=== PATIENT | male | born 1955 | race Caucasian/White ===

== ENCOUNTER 2019-12-29 06:42 | Inpatient (IN) | payer OTHER ==
[~2019-12-29] VITALS: Ht 185.4 cm; Wt 119.2 kg
[2019-12-29] MEDS ORDERED: ALBUTEROL SULFATE 0.083% 2.5 MG/3 ML INH IH ONE (07:05)
[2019-12-29] MEDS ORDERED: FUROSEMIDE 10 MG/ML 4ML VIAL ONE (07:12)
[2019-12-29 07:14] LABS: ABG BASE EXCESS 4.9 mmol/L (-2.0-3.0); ABG HCO3 34.9 mmol/L (21.0-28.0); ABG OXYGEN SATURATION 99.3 % (95.0-99.0); ABG PCO2 79 mmHg (35-48)
[2019-12-29 07:16] LABS: BASOPHILS % (AUTO) 0.7 % (0.0-5.0); EOSINOPHILS % (AUTO) 1.1 % (0.0-8.0); LYMPHOCYTES % (AUTO) 16.8 % (21.0-51.0); MEAN CORPUSCULAR HEMOGLOBIN 28.5 pg (27.0-33.0); MEAN CORPUSCULAR VOLUME 95.1 fL (79-99); MONOCYTES % (AUTO) 11.4 % (3.0-13.0); NEUTROPHILS % (AUTO) 69.7 % (40.0-77.0); PLATELET COUNT (AUTO) 214 K/uL (130-400); RED BLOOD CELL COUNT(AUTO) 4.73 MIL/uL (4.50-6.20); RED CELL DISTRIBUTION WIDTH 16.5 % (11.0-15.5); WHITE BLOOD COUNT (AUTO) 7.4 K/uL (4.8-10.8)
[2019-12-29 07:29] LABS: CREATININE 1.8 mg/dL (0.5-1.5); POTASSIUM 4.1 mmol/L (3.5-5.1)
[2019-12-29 07:35] LABS: ALBUMIN 3.4 g/dL (3.5-5.0); BILIRUBIN,TOTAL 0.3 mg/dL (0.2-1.0); TOTAL PROTEIN, SERUM 7.3 g/dL (6.0-8.3)
[2019-12-29 07:42] LABS: B-TYPE NATRIURETIC PEPTIDE 249 pg/mL (0-100)
[2019-12-29 07:52] LABS: INFLUENZA TYPE A NEGATIVE FOR TYPE A (NEG); INFLUENZA TYPE B NEGATIVE FOR TYPE B (NEG)
[2019-12-29] MEDS ORDERED: METHYLPREDNISOLONE SOD SUCC 40MG/ML 1ML ONE (07:54)
[2019-12-29] MEDS ORDERED: CEFTRIAXONE SODIUM 1 GM ONE (07:54)
[2019-12-29] MEDS ORDERED: SODIUM CHLORIDE 0.9% 100 ML IV ONE (07:58)
[2019-12-29] MEDS ORDERED: NITROGLYCERIN 0.4 MG SL TAB SL PRN (09:15)
[2019-12-29] MEDS ORDERED: ONDANSETRON HCL 4 MG/2 ML VIAL IV PRN (09:15)
[2019-12-29] MEDS ORDERED: LACTULOSE 20 GM/30 ML UDCUP PO PRN (09:15)
[2019-12-29] MEDS ORDERED: HYDRALAZINE HCL 20 MG/ML VIAL IV PRN (09:15)
[2019-12-29] MEDS ORDERED: ACETAMINOPHEN 325 MG TAB PO PRN (09:15)
[2019-12-29] MEDS ORDERED: GUAIFENESIN-DM 200/20 MG 10 ML PO PRN (09:15)
[2019-12-29] MEDS ORDERED: METOPROLOL TARTRATE 1 MG/ML 5ML VIAL IV PRN (09:45)
[2019-12-29] MEDS ORDERED: IPRATROPIUM/ALBUTEROL SULFATE 3 ML SOLUTION IH ONE ×2 (09:49→12:51)
[2019-12-29 10:00] LABS: ABG BASE EXCESS 4.2 mmol/L (-2.0-3.0); ABG HCO3 33.8 mmol/L (21.0-28.0); ABG OXYGEN SATURATION 92.9 % (95.0-99.0); ABG PCO2 75 mmHg (35-48)
--- NOTE | 2019-12-29 10:00 | NUR ---
PT REMOVING MASK Addendum: 12/29/19 at 1025 by LESTER DELA CRUZ RT Amended: Links added.
[2019-12-29] MEDS: IPRATROPIUM/ALBUTEROL SULFATE 3 ML SOLUTION IH SCH ×4 (10:21→21:58)
--- NOTE | 2019-12-29 10:32 | NUR ---
PATIENT UNABLE TO FULLY COMPREHEND CONFUSED AT TIMES, UNABLE TO FULLY EDUCATE AND COLLECT HISTORY Addendum: 12/29/19 at 1033 by LESTER DELA CRUZ RT Amended: Links added.
[2019-12-29] MEDS: INSULIN HUMULIN R 100 UNIT/ML 3ML SQ SCH ×3 (11:30→21:16)
--- NOTE | 2019-12-29 16:00 | NUR ---
Report received on this patient at this time.
[2019-12-29] MEDS ORDERED: FUROSEMIDE 10 MG/ML 2ML VIAL ONE (17:24)
[2019-12-29] MEDS: FUROSEMIDE 10 MG/ML 2ML VIAL IV SCH (17:29)
--- NOTE | 2019-12-29 17:39 | NUR ---
report given to PCCU nurse. patient transported to telemetry unit at this time with nursing and respiratory staff. patient states no distress
[2019-12-29 18:16] VITALS: BP 167/88
[2019-12-29 19:25] VITALS: BP 158/88
[2019-12-29] MEDS: METHYLPREDNISOLONE SOD SUCC 40MG/ML 1ML IVP SCH ×2 (20:00→21:15)
[2019-12-29] MEDS: METOPROLOL TARTRATE 25 MG TAB PO SCH (21:15)
[2019-12-29] MEDS: FAMOTIDINE/PF 20 MG/2 ML VIAL IV SCH (21:15)
[2019-12-29 23:34] VITALS: BP 141/61
[2019-12-30] MEDS ORDERED: MELA10TA2 PO (01:44)
[2019-12-30] MEDS ORDERED: ATOR-2 PO (01:45)
[2019-12-30] MEDS ORDERED: NIFE90TA45 PO (01:46)
[2019-12-30] MEDS ORDERED: IPRA0.2S54 IH (01:47)
[2019-12-30] MEDS ORDERED: METF-445 PO (01:48)
[2019-12-30] MEDS ORDERED: SPIR25TA PO (01:50)
[2019-12-30] MEDS ORDERED: APIX5TAB PO (01:51)
[2019-12-30] MEDS ORDERED: SEVE800T7 PO (01:51)
[2019-12-30] MEDS ORDERED: OMEP20TA2 PO (01:52)
[2019-12-30] MEDS ORDERED: ASPI-555 PO (01:53)
[2019-12-30] MEDS ORDERED: FURO40TA5 PO (01:53)
[2019-12-30] MEDS ORDERED: POTA-79 PO (01:54)
[2019-12-30] MEDS ORDERED: VALS80TA2 PO (01:55)
[2019-12-30] MEDS ORDERED: BUDE0.5A3 IH (01:57)
[2019-12-30] MEDS ORDERED: INSU100C14 SQ (01:58)
[2019-12-30] MEDS ORDERED: INSLAN SQ (01:59)
[2019-12-30] MEDS ORDERED: ACET-2247 PO (02:01)
[2019-12-30] MEDS ORDERED: ALBU1.252 IH (02:02)
[2019-12-30] MEDS ORDERED: CLON0.1T PO (02:04)
[2019-12-30] MEDS: IPRATROPIUM/ALBUTEROL SULFATE 3 ML SOLUTION IH SCH ×6 (02:14→22:00)
[2019-12-30 03:16] VITALS: BP 122/64
[2019-12-30 04:20] LABS: HEMATOCRIT 44.1 % (42-54); LYMPHOCYTES % (AUTO) 6.6 % (21.0-51.0); MEAN CORPUSCULAR HEMOGLOBIN 28.4 pg (27.0-33.0); MEAN CORPUSCULAR HGB CONC 29.3 g/dL (32.0-36.0); MEAN CORPUSCULAR VOLUME 97.1 fL (79-99); MONOCYTES % (AUTO) 6.5 % (3.0-13.0); NEUTROPHILS % (AUTO) 86.7 % (40.0-77.0); PLATELET COUNT (AUTO) 214 K/uL (130-400); RED BLOOD CELL COUNT(AUTO) 4.54 MIL/uL (4.50-6.20); RED CELL DISTRIBUTION WIDTH 16.6 % (11.0-15.5); WHITE BLOOD COUNT (AUTO) 5.6 K/uL (4.8-10.8)
[2019-12-30 04:33] LABS: ALBUMIN 3.1 g/dL (3.5-5.0); BILIRUBIN,TOTAL 0.3 mg/dL (0.2-1.0); CREATININE 2.3 mg/dL (0.5-1.5); POTASSIUM 5.3 mmol/L (3.5-5.1); TOTAL PROTEIN, SERUM 6.6 g/dL (6.0-8.3)
[2019-12-30] MEDS: METHYLPREDNISOLONE SOD SUCC 40MG/ML 1ML IVP SCH ×3 (04:34→20:00)
[2019-12-30] MEDS: FUROSEMIDE 10 MG/ML 2ML VIAL IV SCH (04:34)
[2019-12-30] MEDS: INSULIN HUMULIN R 100 UNIT/ML 3ML SQ SCH ×3 (06:28→16:12)
[2019-12-30 07:45] VITALS: BP 153/83
[2019-12-30] MEDS ORDERED: ENOXAPARIN SODIUM 30 MG/0.3 ML SQ SCH (09:00)
[2019-12-30] MEDS ORDERED: CEFTRIAXONE SODIUM 1 GM IVP SCH (09:00)
[2019-12-30] MEDS: METOPROLOL TARTRATE 25 MG TAB PO SCH (09:54)
[2019-12-30] MEDS: FAMOTIDINE/PF 20 MG/2 ML VIAL IV SCH (09:54)
[2019-12-30 11:43] VITALS: BP 140/90
--- NOTE | 2019-12-30 12:47 | NUR ---
DR. DAQUAN SHERMAN IN ROOM SPEAKING WITH PT. RE:PLAN OF CARE AND ABG'S ORDERED. QUESTIONS ANSWERED BY DR. SHERMAN.
[2019-12-30 13:18] LABS: ABG BASE EXCESS 0.8 mmol/L (-2.0-3.0); ABG HCO3 28.9 mmol/L (21.0-28.0); ABG OXYGEN SATURATION 94.2 % (95.0-99.0); ABG PCO2 61 mmHg (35-48)
--- NOTE | 2019-12-30 13:35 | NUR ---
PT. AGREEABLE TO USE BIPAP. BIPAP APPLIED BY. Wilber RUSSELL
--- NOTE | 2019-12-30 13:38 | NUR ---
DR. DAQUAN SHERMAN NOTIFIED RE:ABG RESULTS, NO NEW ORDERS RECEIVED AT THIS TIME.
--- NOTE | 2019-12-30 15:00 | NUR ---
Initial: Met with pt this afternoon to discuss dcp. 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 He mentions that he lives w his Lisa. Prior to admission he was independent w ambulation and ADLs. He mentions that he has a nebulizer. Per pt he will possibly need assistance w transportation @ the time of discharge. H mentions that his sister is Griselda but she does not live [place]. Per pt he feels safe and comfortable to [place]. CM to continue to follow and wait for Md recommendations. Addendum: 12/30/19 at 1536 by TREMAYNE YO Amended: Links added.
[2019-12-30 15:31] VITALS: BP 147/76
[2019-12-30 19:17] VITALS: BP 145/81
--- NOTE | 2019-12-30 20:45 | NUR ---
PT DOES NOT STAY IN HIS ROOM, PT AT NURSING STATION, REPEATEDLY WANTING TO TALK TO AILEEN PCP. REFUSES TO KEEP ON TELE PACK ON. NO SIGNS OF PAIN OR DISCOMFORT.
[2019-12-30] MEDS ORDERED: ALPRAZOLAM 0.25 MG TABLET PO ONE (22:00)
--- NOTE | 2019-12-30 22:00 | NUR ---
BLOOD SUGAR 163 NO INSULIN NEEDED.
--- NOTE | 2019-12-30 22:33 | NUR ---
I attempted twice to administer TX patient uncooperative keeps refusing seems to be confused keeps taking telly pack off and O2 also will continue to monitor. Addendum: 12/30/19 at 2235 by AZUL CASTANON RT Amended: Links added.
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
[2019-12-30] MEDS ORDERED: ALPRAZOLAM 0.25 MG TABLET ONE (22:39)
--- NOTE | 2019-12-30 22:50 | NUR ---
ZAY SCOTT ARRIVED AT PTS ROOM AND BEGAN TALKING TO HIM. PT THEN ASKED FOR TEA. I CALLED GARRISON PRESS SUPERVISOR AND ZOFIA MAK LATER CAME WITH TEA SENT BY GARRISON. POURED TEA IN A STYROFOAM CUP AND ZAY () GAVE IT TO PT. PT WAS NOW CALMER.
--- NOTE | 2019-12-30 23:00 | NUR ---
CALLED KATHI MCDONALD AT [phone]. KATHI STATES [place]EN FROM [place] FOR 20 YEARS BUT HAS A CIVIL RELATIONSHIP WITH HIM BUT IS UNABLE TO HELP. KATHI GAVE ME PATIENTS SONS PHONE NUMBER [phone] [facility] BUT HE LIVES IN [place].
--- NOTE | 2019-12-30 23:15 | NUR ---
CALLED AYUSH AT [phone] NO ANSWER AND LEFT VOICEMAIL.
--- NOTE | 2019-12-30 23:25 | NUR ---
ZAY ROWLAND SECURITY IS LEAVING PATIENTS BEDSIDE. I WALKED INTO PATIENTS ROOM. PT HAS AGREED IF I COULD CHECK HIS OXYGEN LEVEL. IT IS AT 82%. PT HAS NOW DECIDED TO APPLY ON HIS BIPAP HIMSELF. REFUSES RT TO COME IN. PT REFUSES TO PUT ON TELE PACK, ADVISED PATIENT HE NEEDED TO SIGN A REFUSAL OF TREATMENT, EXPLAINED TO HIM WE NEEDED THE TELE PACK TO MONITOR HIS HEART RATE. HE AGREES TO SIGN PAPER. ONCE PAPER WAS FILLED OUT AND PRESENTED TO PT, PT THEN DENIES TO SIGN FORM. AND DENIES TO PUT ON TELE PACK. EXPLAINED AND EDUCATED PATIENT ON HIS TREATMENT, HE NEEDS OXYGEN TO KEEP OXYGEN LEVEL ABOVE 92%, WE ARE MEDICAL STAFF, HERE TO GIVE HIM PATIENT CARE. PT IS REFUSES EVERYTHING AND WANTS TO LEAVE. I ASKED PT IF HE HAD FAMILY NEAR BY, HE STATES HIS TERRA LIVES IN [place]. AND INSIST ON LEAVING. WHEN I ASKED WHERE HE WOULD GO, HE MENTIONED AN ASSISTED LIVING FACILITY IN [place] AND ATTEMPTED TO LOOK FOR THE PHONE NUMBER. PT ASKED IF I COULD CHECK HIS OXYGEN LEVEL AND IT WAS 95%, BIPAP WAS ALREADY REMOVED BY PATIENT AND STATED 95% WAS GOOD ENOUGH OXYGEN FOR HIM TO LEAVE HE WOULD BE "GOOD" WITH THAT MUCH OXYGEN. I ASKED PT IF HE HAD OXYGEN AT HOME, HE REFUSED TO ANSWER.
[2019-12-30 23:32] VITALS: BP 156/94
--- NOTE | 2019-12-31 00:05 | NUR ---
PT LEFT AMA, AMA SIGNED. PT PULLED OUT HIS IV WHILE STANDING AT THE NURSING STATION, WITNESS AILEEN PCP. NO BLEEDING, REFUSED ANY GAUZE OR TAPE. NOTIFIED REINSURANCE CLERK GARRISON.
--- NOTE | 2019-12-31 00:15 | NUR ---
NOTIFIED LISSETTE BARRAZA ABOUT PT LEAVING AMA.
== END 2019-12-31 00:10 | disposition left against medical advice (07) | DRG 291 ==
LOC: EDH 06:42 → EDHIP 06:43 → 2DH 18:13
PROVIDERS: ADMIT Internal Medicine; ATTEND Internal Medicine
PROC: 5A09357 Assistance with Respiratory Ventilation, Less than 24 Consecutive Hours, Continuous Positive Airway Pressure (ICD-10-PCS; principal; 2019-12-29)
PROC: 5A09357 Assistance with Respiratory Ventilation, Less than 24 Consecutive Hours, Continuous Positive Airway Pressure (ICD-10-PCS; 2019-12-30)
DX: I11.0 Hypertensive heart disease with heart failure (principal); J96.21 Acute and chronic respiratory failure with hypoxia; J18.9 Pneumonia, unspecified organism; J96.22 Acute and chronic respiratory failure with hypercapnia; J44.0 Chronic obstructive pulmonary disease with (acute) lower respiratory infection; J44.1 Chronic obstructive pulmonary disease with (acute) exacerbation; I50.23 Acute on chronic systolic (congestive) heart failure; I25.10 Atherosclerotic heart disease of native coronary artery without angina pectoris; I48.91 Unspecified atrial fibrillation; E11.9 Type 2 diabetes mellitus without complications; G47.33 Obstructive sleep apnea (adult) (pediatric); Z79.51 Long term (current) use of inhaled steroids; Z95.1 Presence of aortocoronary bypass graft; Z87.891 Personal history of nicotine dependence
CPT/HCPCS: 36415; 36600; 71045; 80053; 82140; 82803; 82948; 83880; 84145; 84484; 85025; 87804; 93005; 93306; 94640; 94660; 94664; 99291; G0378; J0696; J1650; J1815; J1940; J2920; J3490